=== PATIENT | male | born 2000 | race Two or more races ===

== ENCOUNTER 2021-02-03 21:17 | Emergency (ER) | payer MEDICAID, OTHER ==
[~2021-02-03] VITALS: Ht 175.3 cm; Wt 81.6 kg
[~2021-02-03 21:17] MED LIST: HYDR-4833
[2021-02-03 21:19] VITALS: BP 140/85
[2021-02-04] MEDS ORDERED: cefTRIAXone SOD 1,000 MG VL IM ONE (00:45)
[2021-02-04] MEDS ORDERED: KETOROLAC TROMETH 60MG/2ML VIAL IM ONE (00:45)
== END 2021-02-04 01:05 | disposition home or self-care (01) ==
LOC: ER 21:19
DX: S50.812A Abrasion of left forearm, initial encounter (principal); Z79.899 Other long term (current) drug therapy; Y00.XXXA Assault by blunt object, initial encounter; Y93.89 Activity, other specified; Y92.89 Other specified places as the place of occurrence of the external cause; Y99.8 Other external cause status
CPT/HCPCS: 73090; 96372; 99284; J0696; J1885